=== PATIENT | male | born 1990 | race Caucasian/White ===

== ENCOUNTER 2021-03-14 17:19 | Emergency (ER) | payer OTHER ==
[~2021-03-14] VITALS: Ht 190.5 cm; Wt 90.7 kg
[~2021-03-14 17:19] MED LIST: ANAPROX DS550 MG PO; ATIVAN1 MG PO; IBU-8800 MG PO; KENALOG0.1% TP; LIDEX0.05% T; MOTRIN800 MG PO; NORFLEX100 MG PO; PREDNICOT20 MG PO; ZITHROMAX Z PA250 MG PO; ZOFRAN ODT4 MG SL
[2021-03-14 22:43] LABS: HEMATOCRIT 36.8 % (42.0-52.0); LYMPH # 0.6 10*3/uL (1.3-4.4); LYMPH % 12.2 % (27.0-41.0); MEAN CORPUSCULAR HGB 29.9 pg (27.0-31.0); MEAN PLATELET VOLUME 11.5 fl (9.6-12.3); MONO # 0.3 10*3/uL (0.1-1.0); NEUT # 3.8 10*3/uL (2.3-7.9); NEUT % 81.6 % (47.0-73.0); PLATELET COUNT AUTOMATED 116 10*3/uL (130-400); RED BLOOD COUNT 4.18 10*6/uL (4.50-5.90); RED CELL DISTRI WIDTH 12.1 % (0-14.5); WHITE BLOOD COUNT 4.7 10*3/uL (4.8-10.8)
[2021-03-14 22:53] LABS: ALBUMIN 3.8 gm/dl (3.1-4.5); ALKALINE PHOSPHATASE 48 U/L (45-117); BUN 9 mg/dl (7-24); CHLORIDE 105 mmol/L (98-107); CREATININE 0.85 mg/dL (0.70-1.30); POTASSIUM 3.5 mmol/L (3.5-5.1); SGOT/AST 18 IU/L (3-35); SGPT/ALT 27 U/L (12-78); SODIUM 137 mmol/L (136-145); TOTAL PROTEIN 7.7 gm/dL (6.4-8.2)
[2021-03-14] MEDS ORDERED: ZOFRAN4 MG PO (23:37)
== END 2021-03-14 23:50 | disposition home or self-care (01) ==
LOC: ED 17:19
PROVIDERS: Internal Medicine
DX: B34.9 Viral infection, unspecified (principal); Z20.822 Contact with and (suspected) exposure to COVID-19; Z88.1 Allergy status to other antibiotic agents

== ENCOUNTER 2024-11-27 11:08 | Emergency (ER) | payer OTHER ==
[~2024-11-27] VITALS: Ht 190.5 cm; Wt 92.5 kg
[~2024-11-27 11:08] MED LIST changes: +ZOFRAN4 MG PO
[2024-11-27] MEDS ORDERED: HYDROmorphONE Hydrochloride 0.5 MG/0.5 ML SYRINGE IV ONE (11:40)
[2024-11-27] MEDS ORDERED: SODIUM CHLORIDE 0.9% 1,000 ML IV ONE (11:40)
[2024-11-27] MEDS ORDERED: Ondansetron Hydrochloride 4 MG/2 ML VIAL IV ONE (11:40)
[2024-11-27 11:49] LABS: BASO % 0.4 % (0.0-1.0); EOS # 0.1 10*3/uL (0.0-0.4); EOS % 2.1 % (1.0-4.0); HEMATOCRIT 39.9 % (42.0-52.0); MEAN CELL VOLUME 87.9 fl (80.0-94.0); MEAN CORPUSCULAR HGB 29.7 pg (27.0-31.0); MEAN CORPUSCULAR HGB CONC 33.8 g/dl (33.0-37.0); MEAN PLATELET VOLUME 10.7 fl (9.6-12.3); MONO # 0.4 10*3/uL (0.1-1.0); MONO % 7.9 % (3.0-9.0); NEUT # 3.5 10*3/uL (2.3-7.9); NEUT % 67.9 % (47.0-73.0); PLATELET COUNT AUTOMATED 171 10*3/uL (130-400); RED BLOOD COUNT 4.54 10*6/uL (4.50-5.90); WHITE BLOOD COUNT 5.2 10*3/uL (4.8-10.8)
[2024-11-27 12:11] LABS: ALKALINE PHOSPHATASE 51 U/L (46-116); BUN 11 mg/dl (9-23); CHLORIDE 104 mmol/L (98-107); LIPASE 28 U/L (12-53); POTASSIUM 3.9 mmol/L (3.4-5.1); SGPT/ALT 35 U/L (5-49); TOTAL PROTEIN 6.9 gm/dL (6.0-8.0)
[2024-11-27] MEDS ORDERED: Ondansetron4 MG PO (12:55)
== END 2024-11-27 13:01 | disposition home or self-care (01) ==
LOC: ED 11:08
PROVIDERS: Nurse Practitioner Family
DX: A08.4 Viral intestinal infection, unspecified (principal); Z79.899 Other long term (current) drug therapy; Z88.0 Allergy status to penicillin; Z88.1 Allergy status to other antibiotic agents